=== PATIENT | male | born 1995 | race Caucasian/White ===

== ENCOUNTER 2020-02-07 02:16 | Emergency (ER) | payer SELFPAY ==
--- NOTE | ~2020-02-07 | CT_ITS ---
EXAMINATION: CT brain wo con DATE: 02/07/2020 03:29 INDICATION: Tonic-clonic seizure activity, new onset. TECHNIQUE: Computed tomography (CT) of the head was performed without intravenous contrast. The mA wa s adjusted according to patient size. Iterative reconstruction technique was employed. The dose-lengt h product was 605.33 mGy-cm. COMPARISON: None FINDINGS: There is no intracranial hemorrhage, acute infarction, or abnormal intracranial mass lesion . The ventricles are normal in size. The orbits are normal. There is mild mucosal thickening in the e thmoid sinuses. The mastoid air cells are normal. IMPRESSION: 1. Normal brain. Reviewed, dictated and finalized at location A. IMPRESSION: 1. Normal brain.
[2020-02-07 02:16] VITALS: BP 151/90; PULSE 72; RESP 18; TEMP 36.7; O2SAT 100
--- NOTE | 2020-02-07 03:10 | ECG_ITS ---
Measurements Intervals [place] Rate: 66 P: 51 ID: [id number] QRS: 75 QRSD: 109 T: 45 QT: 388 QTc: 407 Interpretive Statements SINUS RHYTHM MINIMAL Q WAVES- ANTEROLAT/INF LEADS BASELINE ARTIFACT- V1 BORDERLINE ECG Electronically Signed On 02-07-2020 7:27:57 CDT by Ezra Lam D.O.
--- NOTE | 2020-02-07 03:12 | ED.GENADULT ---
HPI - General Adult General Chief complaint: Unspecified Stated complaint: Possible seizure Source: patient Mode of arrival: ambulatory Limitations: no limitations History of Present Illness HPI narrative: Girlfriend, Cynthia Whitfield, witnessed seizure activity at 2:45 AM consisting of eyes rolled up, head extended, clenched fists, extended legs lasting for about 1 minute. Second episode shortly thereafter of just the right arm shaking. Pt. woke up, started crying, spoke to g.f. Pt. put a hat on and walked into another room. Pt. doesn not remember any of this. G.F. states for the last month [employer] has been having episodes of legs and arms shaking uncontrollably. Pt. confirms this. Denies headache, head trauma (other than when ~ 5 y.o. when hit head. No LOC), neck pain, incontinence of urine, cheek biting, absence episodes. Denies recreational drug use. No etoh in several days. Drinks on occasion. Started buspirone and escitalopram for anxiety one month ago. Related Data Home Medications Medication Instructions Recorded Confirmed buspirone 10 mg PO DAILY 02/07/20 02/07/20 escitalopram oxalate 10 mg PO DAILY 02/07/20 02/07/20 meloxicam 15 mg PO DAILY 02/07/20 02/07/20 Allergies Allergy/AdvReac Type Severity Reaction Status Date / Time No Known Allergies Allergy Verified 02/07/20 02:22 Review of Systems Constitutional: Constitutional: Denies chills, Denies fever(s) and Denies weakness Eyes: Eyes: Denies change in vision and Denies photophobia ENT: Denies vertigo and Denies sore throat Cardiovascular: Cardiovascular: Reports no additional cardiovascular complaints, Denies chest pain, Denies rapid heart rate and Denies slow heart rate Respiratory: Respiratory: Denies cough, Denies dyspnea and Denies wheezing Gastrointestinal: Gastrointestinal: Denies diarrhea, Denies nausea and Denies vomiting Musculoskeletal: Musculoskeletal: Denies joint swelling Comments: recurrent knee pain tx. with meloxicam Integumentary/Breasts: Skin/Breast: Denies pruritus, Denies erythema and Denies rash Neurologic: Denies vertigo, Denies dizziness, Denies syncope, Denies focal weakness and Denies numbness Psychiatric: Comments: no current anxiety Hematologic/Lymphatic: Hematologic/Lymphatic: Denies easy bleeding Allergic/Immunologic: Allergic/Immunologic: Denies lip swelling PMFSH Past Medical History Medical History (Updated 02/07/20 @ 04:21 by Tam Zamorano MD) Patient denies significant medical history Family History Family History (Updated 02/07/20 @ 03:25 by Tam Zamorano MD) Other Adopted Social History Social History (Updated 02/07/20 @ 03:27 by Tam Zamorano MD) Smoking status: Never smoker Alcohol use details: Drinks a couple drinks once a month. Substance use: never Exam Narrative: Exam Narrative: Healthy appearing male. NAD. HENMT: Head: no hematomas General nose exam: no nasal discharge noted Face and sinus: normal facial exam Mouth: Yes moist mucous membranes Eyes: Conjunctivae: conjunctivae normal Pupils: Equal, round and reactive pupils present EOM: EOMs intact bilaterally Direct Ophthalmoscopy: No photophobia Neck: Neck: no lymphadenopathy and no meningeal signs Chest: Chest palpation & inspection: normal inspection of the chest Resp: Effort & Inspection: normal respiratory effort Auscultation: clear to auscultation bilaterally Cardio: Rate: regular rate Rhythm: regular rhythm GI: GI Palp: Yes Soft to palpation and No Tenderness to palpation present (GI) Skin: General skin exam: normal color Rashes: no rashes Neuro: General: patient oriented x3, moves all extremities, no meningeal signs, no focal motor deficits and CN's II-XI intact bilaterally Cranial nerves: Yes Nystagmus not present Speech: normal speech Gait exam (Neuro): Normal gait present Other: NIH stroke scale of 0. Tandem gait intact. 12+ pateallar and ankle jerk reflexes. Extrem:
--- NOTE | 2020-02-07 03:20 | PC.NURSE ---
pt to CT per wheelchair with xray staff.
[2020-02-07 03:21] LABS: Basophils Absolute Auto 0.04 K/mm3 (0.00-0.10); Basophils Percent Auto 0.5 % (0.0-1.0); Eosinophils Percent Auto 1.3 % (1.0-6.0); Hematocrit 41.3 % (40.0-54.0); Immature Granulocyte Absolute 0.02 K/mm3 (0.00-0.00); Immature Granulocyte Percent A 0.3 % (0.0-0.0); Lymphocytes Absolute Auto 3.08 K/mm3 (1.10-4.50); Mean Corpuscular HGB Conc 33.9 g/dL (32.0-36.0); Mean Corpuscular Volume 91.4 fL (78.0-102.0); Mean Platelet Volume 9.8 fl (8.7-11.0); Monocytes Absolute Auto 0.78 K/mm3 (0.10-0.90); Monocytes Percent Auto 9.9 % (2.0-11.0); Neutrophils Absolute Auto 3.9 K/mm3 (1.7-7.2); Platelet Count Result 223 K/mm3 (150-420); Red Blood Count 4.52 M/mm3 (4.70-6.10); Red Cell Distribution Width 12.6 % (11.6-14.4); White Blood Count 7.9 K/mm3 (4.8-10.8)
[2020-02-07 03:35] LABS: Amphetamine Screen Urine Negative (Negative); Barbiturate Screen Urine Negative (Negative); Benzodiazepines Screen Urine Negative (Negative); Cannabinoid Screen Urine Negative (Negative); Cocaine Screen Urine Negative (Negative); Methadone Screen Urine Negative (Negative); Opiate Screen Urine Negative (Negative); Phencyclidine Screen Urine Negative (Negative)
[2020-02-07 03:36] LABS: Alanine Aminotransferase 22 U/L (16-63); Alkaline Phosphatase 87 U/L (46-116); Anion Gap 12.6 mmol/L (7-16); Aspartate Amino Transferase 16 U/L (15-37); Bilirubin,Total 0.4 mg/dL (0.00-1.00); Blood Urea Nitrogen 22 mg/dL (7-18); Carbon Dioxide 30 mmol/L (21-32); Chloride 103 mmol/L (98-108); Estimated CRCL calculation 106 ml/min; Estimated Glomerular Filt Rate > 60; Glucose 94 mg/dL (70-99); Magnesium 1.8 mg/dL (1.8-2.4); Osmolality Calculated 297 mOsm/kg (285-295); Potassium 3.6 mmol/L (3.5-5.1); Sodium 142 mmol/L (136-145)
--- NOTE | 2020-02-07 03:39 | PC.NURSE ---
0330 pt return to room, side rails up. no complaints or noted seizure activity at this time.
--- NOTE | 2020-02-07 03:47 | PC.NURSE ---
Pt resting per cot. using cell device. no seizure activity noted.
[2020-02-07 04:26] VITALS: BP 125/77; PULSE 72; RESP 20; TEMP 37.1; O2SAT 98
== END 2020-02-07 04:28 | disposition home or self-care (01) ==
PROVIDERS: Emergency Provider Family Medicine; PCP Internal Medicine
DX: G40.909 Epilepsy, unspecified, not intractable, without status epilepticus (principal)
CPT/HCPCS: 36415; 70450; 80053; 80307; 83735; 85025; 93005; 99283; 99284

== ENCOUNTER 2020-02-27 12:32 | Outpatient (CLI) | payer OTHER, SELFPAY ==
--- NOTE | 2020-02-27 13:30 | NEURO_ITS ---
TEST: ELECTROENCEPHALOGRAM DIAGNOSIS: SEIZURES PATIENT NUMBER: [id number] EEG NUMBER: [id number] RECORDING DATE: 02/27/20 CLINICAL HISTORY: Patient reports he was sleeping , began shaking and walked into another room without knowing what he doing CONDITION OF RECORDING: Awake, drowsy and sleep EEG DESCRIPTION: Basic resting occipital frequency consists of small amount of poorly organized low voltage 9-11hz alpha mixed with low voltage 15-21hz beta during brief periods of wakefulness. During drowsiness low voltage beta activity is seen diffusely mixed with waxing and waning posterior alpha rhythms. Bilateral symmetrical sleep activity is seen during sleep. Photic stimulation produced poor drive. Hyperventilation produced poor build-up. Nonparoxysmal. Nonfocal. Nonlateralizing. IMPRESSION: No significant abnormalities noted. MTDD
== END 2020-02-27 12:33 | disposition home or self-care (01) ==
PROVIDERS: PCP Internal Medicine; Visit Provider Internal Medicine
DX: R56.9 Unspecified convulsions (principal)
CPT/HCPCS: 95816

== ENCOUNTER 2022-03-15 16:05 | Emergency (ER) | payer OTHER, SELFPAY ==
--- NOTE | ~2022-03-15 | XR_ITS ---
EXAMINATION: XR chest 1V portable Exam Date/Time: 03/15/2022 17:20 CDT HISTORY: SOB w/ productive cough x 4 days Comparison: None available. RESULT: Lines, tubes, and devices: None. Lungs and pleura: Clear. Cardiomediastinal silhouette: Normal cardiomediastinal silhouette. Other: No acute osseous or upper abdominal finding. IMPRESSION: No acute cardiopulmonary process. Reviewed, dictated and finalized at location K.
[2022-03-15 16:50] VITALS: BP 124/74; PULSE 76; RESP 20; TEMP 36.8; O2SAT 100
[2022-03-15 17:44] LABS: Influenza Control Valid (Valid)
[2022-03-15] MEDS: guaiFENesin 12 HR 600 MG TABCR PO (17:47)
--- NOTE | 2022-03-15 17:59 | ED.URI ---
HPI - URI/Sore Throat General Chief Complaint: Upper Respiratory Infection Stated Complaint: sore throat, SOB, cough Time Seen by Provider: 03/15/22 16:08 Source: patient and RN notes reviewed Mode of arrival: ambulatory Limitations: no limitations History of Present Illness MD elicited complaint: sore throat and nasal congestion Onset (ago): day(s) (3) Consistency: constant and progressively worsening Severity: moderate Pain scale (0-10): 4 Exacerbating factors: swallowing Relieving factors: nothing Associated symptoms: nasal congestion, sore throat and shortness of breath Related Data Home Medications Medication Instructions Recorded Confirmed buspirone 10 mg tablet 10 mg PO DAILY 02/07/20 03/15/22 escitalopram oxalate 10 mg tablet 10 mg PO DAILY 02/07/20 03/15/22 meloxicam 15 mg tablet 15 mg PO DAILY 02/07/20 03/15/22 Allergies Allergy/AdvReac Type Severity Reaction Status Date / Time No Known Allergies Allergy Verified 02/07/20 02:22 Review of Systems Review of Systems: All systems reviewed & are unremarkable except as noted in HPI and below Constitutional: Constitutional: Reports no additional constitutional complaints Eyes: Eyes: Reports no additional eye complaints ENT: Reports system reviewed and no additional complaints, except as documented Cardiovascular: Cardiovascular: Reports no additional cardiovascular complaints Respiratory: Respiratory: Reports no additional respiratory complaints Gastrointestinal: Gastrointestinal: Reports no additional gastrointestinal complaints Musculoskeletal: Musculoskeletal: Reports no additional musculoskeletal complaints Integumentary/Breasts: Skin/Breast: Reports system reviewed and no additional complaints, except as docu Neurologic: Reports system reviewed and no additional complaints, except as documented Psychiatric: Psychiatric: Reports no additional psychiatric complaints Endocrine: Endocrine: Reports no additional endocrine complaints Hematologic/Lymphatic: Hematologic/Lymphatic: Reports no additional hematologic/lymphatic complaints Allergic/Immunologic: Allergic/Immunologic: Reports no additional allergic/immunologic complaints [facility] Past Medical History Medical History (Updated 03/15/22 @ 18:16 by Carlin Lion MD) Patient denies significant medical history Pharyngitis Viral syndrome Family History Family History (Updated 02/07/20 @ 03:25 by Tam Zamorano, ) Other Adopted Social History Social History (Updated 02/07/20 @ 03:27 by Tam ZamoranoMD) Smoking status: Never smoker Alcohol use details: Drinks a couple drinks once a month. Substance use: never Exam Const: General: no acute distress Nutritional Appearance: well nourished Orientation/consciousness: patient oriented x3 Limitations: no limitations HENMT: Head: normal to inspection Ears: external ears normal and TM's normal bilaterally General nose exam: Normal external nose present and Normal nares present Face and sinus: normal facial exam and sinuses nontender Mouth: Yes Normal oral and palatal mucosa present and Yes moist mucous membranes Teeth and gingiva: dentition normal Other: mild pharyngeal redness Eyes: Conjunctivae: conjunctivae normal Pupils: Equal, round and reactive pupils present EOM: EOMs intact bilaterally Neck: Neck: normal visual inspection, no lymphadenopathy and no meningeal signs Chest: Chest palpation & inspection: normal inspection of the chest Resp: Effort & Inspection: normal respiratory effort Auscultation: clear to auscultation bilaterally Cardio: Rate: regular rate Rhythm: regular rhythm GI: GI Palp: Yes Soft to palpation and No Tenderness to palpation present (GI) Auscultation: normal bowel sounds : General: Yes bladder normal to palpation and Yes no CVA tenderness Back/Spine/Pelvis: Back: no CVA tenderness Skin: General skin exam: normal color Rashes: no rashes Wounds: no wounds Neuro:
[2022-03-15 18:02] LABS: SARS-CoV-2 RNA PCR Positive (Negative)
[2022-03-15] MEDS: cefTRIAXone 1 GM, LIDOCAINE HCL 1% LOCAL INJ 2.1 ML IM (18:08)
[2022-03-15 18:38] VITALS: BP 120/74; PULSE 76; RESP 20; TEMP 37.1; O2SAT 97
== END 2022-03-15 18:20 | disposition home or self-care (01) ==
PROVIDERS: Emergency Provider Emergency Medicine; PCP Internal Medicine
DX: U07.1 COVID-19 (principal); J02.9 Acute pharyngitis, unspecified; B34.9 Viral infection, unspecified
CPT/HCPCS: 71045; 87804; 87880; 96372; 99283; A9270; C9803; J0696; U0003; U0005

== ENCOUNTER 2022-08-26 11:14 | Outpatient (CLI) | payer OTHER, SELFPAY ==
--- NOTE | ~2022-08-26 | XR_ITS ---
EXAMINATION: XR knee LT min 4V DATE: 08/26/2022 11:42 INDICATION: Left knee pain TECHNIQUE: Four views of the left knee were obtained. COMPARISON: 06/15/2019 FINDINGS: Bone alignment is normal. There is no fracture. Subchondral cyst formation is seen in the t ibial plateau as well as the lateral condyle of the distal femur. No joint effusion/synovitis. Soft tissues are unremarkable. IMPRESSION: 1. Worsening osteoarthritis without acute osseous abnormality. Reviewed, dictated and finalized at location F. AT DRIVER/LABOR
== END 2022-08-26 11:15 | disposition home or self-care (01) ==
LOC: CHSIMG 11:17
PROVIDERS: PCP Internal Medicine; Visit Provider Internal Medicine
DX: M25.562 Pain in left knee (principal)
CPT/HCPCS: 73564

== ENCOUNTER 2022-09-05 08:17 | Outpatient (CLI) | payer OTHER, SELFPAY ==
--- NOTE | ~2022-09-05 | MR_ITS ---
EXAMINATION: MR knee LT wo con DATE: 09/05/2022 10:43 INDICATION: Left knee pain. TECHNIQUE: Magnetic resonance imaging (MRI) of the left knee was performed without intravenous contra st. Sequences included axial PD-weighted FS FSE, coronal PD-weighted FSE and PD-weighted FS FSE, sagi ttal PD-weighted FSE, and sagittal T2-weighted FS FSE. COMPARISON: Left knee radiographs 08/26/2022 FINDINGS: Medial compartment: Medial meniscus is normal. Medial compartment cartilage is normal. Lateral compartment: Lateral meniscus is normal. There is chronic cortical depression with subchondral cysts involving the central articular surface of lateral tibial condyle. There is deep partial thickness cartilage loss of tibial condyle in this area. The femoral cartilage is normal. Marginal osteophytes are noted. Patellofemoral compartment: Patellar cartilage is normal. Trochlear cartilage is normal. Ligaments and tendons: The anterior and posterior cruciate ligaments are normal. Medial collateral ligament and lateral juanita ateral ligament complex are normal. There is mild patellar tendinopathy. Fluid: There is a small knee joint effusion. IMPRESSION: 1. Moderate chondrosis of lateral tibial condyle. 2. Small knee joint effusion. Reviewed, dictated and finalized at location A. [employer]
== END 2022-09-05 08:18 | disposition home or self-care (01) ==
LOC: CHSIMG 08:17
PROVIDERS: PCP Internal Medicine; Visit Provider Internal Medicine
DX: M25.562 Pain in left knee (principal)
CPT/HCPCS: 73721